=== PATIENT | female | born 1935 | race Caucasian/White ===

== ENCOUNTER → 2017-03-30 | Outpatient (CLI) | payer MEDICARE ==
[2017-03-30 10:49] LABS: BUN/CREATININE RATIO 32 (0-10)
[2017-03-30 11:36] LABS: HEMOGLOBIN 14.3 gm/dl (12.3-15.3); RED BLOOD COUNT 4.6 M/UL (4.00-5.10); WHITE BLOOD COUNT 7.6 K/UL (4.5-11.0)
== END ==
LOC: OPSV2 09:00
PROVIDERS: Orthopaedic Surgery
DX: Z01.810 Encounter for preprocedural cardiovascular examination (principal); Z01.812 Encounter for preprocedural laboratory examination; M17.12 Unilateral primary osteoarthritis, left knee
CPT/HCPCS: 36415; 80048; 81001; 85025; 87077; 87081; 87086; 87186; 93005